=== PATIENT | female | born 1995 | race Caucasian/White ===

== ENCOUNTER 2020-02-24 01:16 | Emergency (ER) | payer MEDICAID ==
[~2020-02-24] VITALS: Ht 160 cm; Wt 72.6 kg
[2020-02-24 01:21] VITALS: BP_SYST 128
--- NOTE | 2020-02-24 01:21 | NUR ---
Placed in room 7 . Placed on quality assurance monitor final, blood pressure machine and pulse oximeter. To gown for exam. Side rails up.
--- NOTE | 2020-02-24 01:27 | NUR ---
PT A&O X4 C/O OF EPIGASTRIC CHEST PAIN RADIATING TOWARDS BACK THAT STARTED 2 HRS AGO. PT REPORTS PAIN IS 8/10. PT STATES IT IS PAINFUL WHEN SHE TAKES A DEEP BREATH. PT DENIES SOB, NAUSEA, VOMITING, DIARRHEA, CONSTIPATION.
--- NOTE | 2020-02-24 01:28 | NUR ---
ER Dr. Coburn at bedside examining patient.
[2020-02-24] MEDS ORDERED: ASPIRIN 81 MG TAB.CHEW PO ONE (01:30)
--- NOTE | 2020-02-24 01:40 | NUR ---
# 20 gauge angiocath placed to LAC. Use of asceptic technique. Opsite placed over site. Blood return noted. Blood for lab drawn from site. Flushed with 10 cc of normal saline. No evidence of infiltration noted. Patient tolerated well.
[2020-02-24 01:59] LABS: BASOPHILS # (AUTO) 0.1 K/uL (0.0-0.2); EOSINOPHILS # (AUTO) 0.2 K/uL (0.0-0.4); EOSINOPHILS % (AUTO) 2.5 % (0.0-4.0); HEMATOCRIT 38.9 % (36-48); HEMOGLOBIN 13.9 g/dL (12.0-16.0); LYMPHOCYTES # (AUTO) 2.1 K/uL (1.0-5.5); LYMPHOCYTES % (AUTO) 21.9 % (20.5-51.5); MEAN CORPUSCULAR HEMOGLOBIN 32 pg (27-31); MEAN CORPUSCULAR HGB CONC 36 % (32-36); MEAN CORPUSCULAR VOLUME 89 fL (79.0-98.0); MONOCYTES # (AUTO) 1.1 K/uL (0.0-1.0); MONOCYTES % (AUTO) 11.6 % (1.7-9.3); NEUTROPHILS # (AUTO) 6.2 K/uL (1.8-7.7); PLATELET COUNT (AUTO) 205 K/uL (130-430); RED BLOOD CELL COUNT(AUTO) 4.38 MIL/uL (4.2-6.2); RED CELL DISTRIBUTION WIDTH 13.2 % (9.0-15.0); WHITE BLOOD COUNT (AUTO) 9.8 K/uL (4.8-10.8)
[2020-02-24 02:17] LABS: CALCIUM 9.5 mg/dL (8.4-11.0); CREATININE 1.1 mg/dL (0.55-1.30); POTASSIUM 3.2 mmol/L (3.5-5.1)
[2020-02-24 02:29] LABS: TOTAL BILIRUBIN 0.5 mg/dL (0.0-1.0)
--- NOTE | 2020-02-24 02:36 | NUR ---
patient reports her pain has decreased to a 7 out of 10. MD aware.
[2020-02-24] MEDS ORDERED: POTASSIUM CHLORIDE 20 MEQ TAB.PRT.SR PO ONE (02:45)
[2020-02-24 02:52] LABS: CKMB RELATIVE INDEX 0.6 (0.0-2.9); CREATINE KINASE MB 1.7 ng/mL (0-3.6)
--- NOTE | 2020-02-24 03:06 | NUR ---
patient medicated per MD order. patient tolerated well.
[2020-02-24] MEDS ORDERED: POTASSIUM CHLORIDE 10 MEQ TAB.PRT.SR ONE (03:23)
[2020-02-24] MEDS ORDERED: IBUPROFEN 800 MG TABLET PO ONE (04:30)
--- NOTE | 2020-02-24 04:34 | NUR ---
PT STATES PAIN IS 5 OUT OF 10. PT MEDICATED PER MD ORDER. PT TOLERATED WELL
[2020-02-24 05:40] VITALS: BP_SYST 127
--- NOTE | 2020-02-24 05:40 | NUR ---
Patient given written and verbal discharge instructions and verbalizes understanding. ER MD discussed with patient the results and treatment provided. Patient in stable condition. ID arm band removed. IV catheter removed intact and dressing applied, no active bleeding. nO Rx given. Patient educated on pain management and to follow up with PMD. Pain Scale 1/10. Opportunity for questions provided and answered. Medication side effect fact sheet provided.
== END 2020-02-24 05:40 | disposition home or self-care (01) ==
LOC: SED 01:16
DX: R07.2 Precordial pain (principal)
CPT/HCPCS: 36415; 71045; 80053; 82550-TC; 82553-TC; 84484; 84702-TC; 85025; 85379; 93005; 99285